=== PATIENT | female | born 1950 | race Caucasian/White ===

== ENCOUNTER → 2017-04-06 | Outpatient (CLI) | payer MEDICARE, OTHER ==
--- NOTE | 2017-04-06 10:26 | RADRPT ---
PROCEDURE: XR Knees. CLINICAL INDICATION: Bilateral knee pain. TECHNIQUE: Total of six views. Frontal, oblique, and lateral views of both knees. COMPARISON: No prior study is available for comparison. FINDINGS: There is no fracture or dislocation. The soft tissues are normal. There are degenerative changes with osteophytes arising from all 3 joint compartment margins bilater ally. There is mild bilateral medial joint compartment narrowing. There is no lytic or blastic lesion. There is no radiopaque foreign body. IMPRESSION: 1. Mild to moderate degenerative changes of both knees. 2. No acute abnormality. RPTAT: QQ .Jayson Thacker MD, MD Date Time Electronically viewed and signed by .Jayson Thacker MD, MD on 04/06/2017 10:25 .R/
--- NOTE | 2017-04-07 11:18 | HKNOTE ---
DATE OF SERVICE: 04/06/2017 MAIN COMPLAINT: Pain in the left knee. HISTORY OF MAIN COMPLAINT: The patient is a 66-year-old female who complains that she had a sudden onset of pain in the left knee about 3 weeks ago without any history of injury. She injured her right knee 15 years ago. She has had occasional instability of the right knee ever since then but she has no pain or other symptoms in the right knee. PRESENT COMPLAINTS: The pain in the left knee is localized to the medial side of the knee and varie s from moderate to severe. The knee swells. There is no locking and no instability. The right knee has none of the above symptoms. The pain in the left knee is aggravated by walking, weightbearing and stair climbing. She has diffi culty with stairs. At most significantly the knee will not extend fully and she has to sleep on her side or with a pillow under her knee in order to prevent it from extending fully which causes pain. She takes Extra Strength Tylenol for the pain. She denies any back pain. She has no numbness or tingling in her legs. She does not use a walking aid. She occasionally limps when the pain is bad. PAST ORTHOPEDIC HISTORY: Torn meniscus of the right knee diagnosed 15 years ago, but no surgery per formed. PRIOR CORTISONE INTAKE: The patient had cortisone injections in the past. ALCOHOL INTAKE: None. OTHER JOINT PROBLEMS: Both thumbs. BLOOD TESTS FOR ARTHRITIS: None. PRIOR INJURIES TO HIPS OR KNEES: None. WORK: Not applicable. PAST MEDICAL HISTORY: Atrial fibrillation. (Although, this patient has a long list of medications she is taking, she only wrote down atrial fibrillation as her past medical history. This needs to b e explored further with her at her next visit). PAST SURGICAL HISTORY: Hysterectomy, cholecystectomy. DRUG ALLERGIES: NONE. MEDICATIONS: 1. Levothyroxine . 2. Omeprazole. 3. Ranitidine 4. Metoprolol. 5. Potassium chloride. 6. Rosuvastatin. 7. Otezla. 8. Xarelto. 9. Losartan. 10. Amlodipine. 11. Gabapentin. FAMILY HISTORY: Noncontributory. SYSTEMS REVIEW: Prone to headaches, otherwise entirely negative. HABITS: The patient does not smoke or drink alcoholic beverages. SNATH HANDLE ASSEMBLER: Dr. Ezra Crook. TELEMETRY REGISTERED NURSE: Dr. Villa. PHYSICAL EXAMINATION: GENERAL: Patient is a fit-looking youthful 66-year-old female. VITAL SIGNS: Height 5 feet 2 inches, weight 195 pounds. Blood pressure 130/65, temperature 98.4. LEFT KNEE: Alignment is normal. Extension lacks 5 degrees (markedly painful). Flexion is normal, 1+ effusion, quite marked tenderness over the medial joint line, 2+ crepitus. RIGHT KNEE: Entirely normal. IMAGING: Plain x-rays of both knees obtained today at the [facility] were review ed. Imaging of the left knee shows narrowing of the medial joint space without drek-ty-lagj contact and without secondary degenerative changes. Imaging of the right knee shows identical changes with narrowing of the medial joint space and no se condary osteoarthritic changes. DIAGNOSES: 1. Mild to moderate degenerative osteoarthritis of both knees. 2. Possible internal derangement of the left knee. 3. Hypertension. MANAGEMENT: Under sterile conditions, the patient was given injection of 2 mL of Kenalog and 6 mL o f 2% lidocaine into the left knee joint. She was given my client account assistant's card and she will call back i n a week's time and order an MRI scan of her knee if she has not made a good recovery from her curre nt symptoms. Dictated By: ANDER MIXON/SAFIA Conf#: [id number] DID#: [id number]
== END | disposition home or self-care (01) ==
LOC: HKI 09:19
DX: M17.0 Bilateral primary osteoarthritis of knee (principal); I10 Essential (primary) hypertension; I48.91 Unspecified atrial fibrillation
CPT/HCPCS: 20610; 73562; G0463

== ENCOUNTER → 2017-05-04 | Outpatient (CLI) | payer MEDICARE, OTHER ==
--- NOTE | 2017-05-05 03:47 | HKNOTE ---
DATE OF SERVICE: The patient comes in with her knee MRI for review. The MRI obtained on is reported as showing tears of the medial meniscus (note that this patien t's MRI was reported in my hands an hour ago and is now not in the chart. She was given a copy of h MRI report). Plain x-rays of her knee obtained at the last visit shows minimal degenerative changes. Note also t hat the cortisone injection given to her at the last visit did not help at all. MANAGEMENT: The patient advised that she will need to have an arthroscopic operation on the left kn ee. The procedure and some of the major possible complications were discussed with her in a fair am ount of detail. She was advised that I am not operating at present because of my back condition. She will be referred to one of my associates for the surgery when she is ready to proceed. She rema cates that her , Savage, is currently having chemotherapy. His last treatment is scheduled fo r 05/08/2017. She will call to schedule the procedure after that. Dictated By: ANDER MIXON/SAFIA Conf#: [id number] DID#: [id number]
== END | disposition home or self-care (01) ==
LOC: HKI 09:12
DX: M23.204 Derangement of unspecified medial meniscus due to old tear or injury, left knee (principal)
CPT/HCPCS: G0463

== ENCOUNTER → 2017-06-05 | Outpatient (CLI) | payer MEDICARE, OTHER ==
--- NOTE | 2017-06-06 06:53 | HKNOTE ---
DATE OF SERVICE: 06/05/2017 CHIEF COMPLAINT: Left knee pain. HISTORY OF PRESENT ILLNESS: This is a 66-year-old female who is complaining of left knee pain. She has instability. She denies any locking or catching. She denies any history of trauma. She has s een Dr. Og Watson previously and has had a cortisone injection of the left knee within the last couple of months. She states that the injection has not alleviated her pain. She is performin g home exercises without any pain relief. The pain is on the inside of the left knee. It interfere s with her activities of daily living. There are no alleviating factors. She denies any groin or b ack pain. GAIT: Antalgic gait, reciprocal gait pattern. LEFT KNEE EXAMINATION: Neutral alignment. Tender over the medial joint line, nontender over the la teral joint line. 0 to 120 degrees of flexion. Positive Yakelin's medially, negative Julisa, neg ative anterior drawer, negative posterior drawer. MOTOR STRENGTH: 5/5 hamstrings, quadriceps, tibialis anterior, gastroc soleus. X-RAYS, LEFT KNEE: 3 views of the left knee demonstrate joint space narrowing over the medial and p atellofemoral joints. There is no narrowing of the lateral compartment. MRI, LEFT KNEE: There is an oblique tear of the posterior horn of the medial meniscus. There are t ricompartmental degenerative changes seen. Cruciate and collateral ligaments are intact. IMPRESSION: A 66-year-old female with left knee posterior horn medial meniscus tear. PLAN: I discussed treatment options with the patient. I discussed weight loss, use of assistive de vice as well as knee brace. I also discussed additional physical therapy. In addition, I spoke to the patient regarding left knee arthroscopy and discussed the risks associated with surgery. She wo uld like to proceed with surgery. We will schedule her for a left knee arthroscopy with partial med ial meniscectomy. She will require preoperative medical clearance. Dictated By: KEV MUSTAFA/SAFIA Conf#: [id number] DID#: [id number]
== END | disposition home or self-care (01) ==
LOC: HKI 08:38
PROVIDERS: ATTEND Orthopaedic Surgery Adult Reconstructive Orthopaedic Surgery
DX: M23.222 Derangement of posterior horn of medial meniscus due to old tear or injury, left knee (principal)
CPT/HCPCS: G0463